=== PATIENT | male | born 2000 | race Caucasian/White ===

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

== ENCOUNTER 2024-08-31 23:58 | Emergency (ER) | payer OTHER ==
[~2024-08-31] VITALS: Ht 188 cm; Wt 79.4 kg
[~2024-08-31 23:58] MED LIST changes: +CLIN150 PO; +DOXY100 PO; +PREDNISOLO20 MG/5 ML PO
[2024-09-01 00:17] VITALS: BP 135/83
[2024-09-01] MEDS ORDERED: HYDROcodone 5-APAP 325 TAB PO ONE (02:00)
[2024-09-01] MEDS ORDERED: Ibuprofen 600 MG Tab PO ONE (02:00)
[2024-09-01] MEDS ORDERED: IBU600 MG PO (02:02)
== END 2024-09-01 02:34 | disposition home or self-care (01) ==
LOC: ER 23:58
DX: S63.266A Dislocation of metacarpophalangeal joint of right little finger, initial encounter (principal); F17.210 Nicotine dependence, cigarettes, uncomplicated; W22.01XA Walked into wall, initial encounter; Z88.0 Allergy status to penicillin
CPT/HCPCS: 29125; 73130; 99283-25; A9270